=== PATIENT | female | born 1970 | race Caucasian/White ===

== ENCOUNTER 2019-01-29 11:10 | Emergency (ER) | payer OTHER ==
[2019-01-29 11:24] VITALS: BP 163/95; PULSE 71; TEMP 98.3; BMI 30.9
--- NOTE | 2019-01-29 11:58 | PDOC ---
History of Present Illness - General Chief Complaint: Pain, Acute Stated Complaint: right knee pain Time Seen by Provider: 01/29/19 11:31 - History of Present Illness Initial Comments: 01/29/19 15:18 Chief complaint: pain in the right knee History of present illness: Patient is a special-needs teacher,was on the floor playing with student, when arising felt sudden in the right knee, laterally, which has persisted and is limiting ambulation. ROS: No distal numbness, paresthias, pain or weakness. No other injuries PMH: Neg SH/FH neg PE:R knee without deformity, LROM, swelling, effusion. Earnestine neg. MCL nl. LCL + stress tenderness no laxity. Imp; LCLSprain Plan: xray neg, Ayaan, Crutches PWB. Ibuprofen, ice rest, ortho f/u. 01/29/19 16:54 Past History - Past Medical History Allergies/Adverse Reactions: Allergies Allergy/AdvReac Type Severity Reaction Status Date / Time Sulfa (Sulfonamide Allergy Intermediate Hives Verified 01/29/19 11:11 Antibiotics) nitrofurantoin Allergy Verified 01/29/19 11:11 [From Macrobid] nitrofurantoin Allergy Verified 01/29/19 11:11 macrocrystalline [From Macrobid] acetaminophen [From Percocet] AdvReac Verified 01/29/19 11:11 amoxicillin trihydrate AdvReac Verified 01/29/19 11:11 [From Amoxil] oxycodone HCl [From Percocet] AdvReac Verified 01/29/19 11:11 Penicillins AdvReac Verified 01/29/19 11:11 potassium clavulanate AdvReac Verified 01/29/19 11:11 [From Augmentin] lobster Allergy Uncoded 11/06/16 16:55 sri Allergy Uncoded 11/06/16 16:56 Home Medications: Ambulatory Orders Cholecalciferol (Vitamin D3) [Vitamin D3] 1 cap PO DAILY 11/20/16 Cranberry 600 mg PO DAILY 11/20/16 Northera 400 mg PO TID 01/29/17 Folic Acid 1 mg PO DAILY 01/29/19 Vit B Comp/C/Folic/Iron/Vit E [Vitamin B Complex Tablet] 1 each PO DAILY COPD: No HTN: Yes (Orthostatic neurogenic) - Suicide/Smoking/Psychosocial Hx Smoking History: Never smoked Hx Alcohol Use: No Drug/Substance Use Hx: No *Physical Exam - Vital Signs Last Vital Signs Temp Pulse Resp BP Pulse Ox 98.3 F 71 18 163/95 100 01/29/19 11:11 01/29/19 11:11 01/29/19 11:11 01/29/19 11:11 01/29/19 11:11 *DC/Admit/Observation/Transfer Diagnosis at time of Disposition: Knee LCL sprain Qualifiers: Encounter type: initial encounter Laterality: right Qualified Code(s): S83.421A - Sprain of lateral collateral ligament of right knee, initial encounter - Discharge Dispostion Disposition: HOME Condition at time of disposition: Improved Decision to Admit order: No - Referrals Referrals: Oscar Leyva MD [Staff Physician] - 1 week - Patient Instructions Printed Discharge Instructions: How to Use Crutches, How to Use an Elastic Bandage-Knee Sprain, DI for Knee Sprain Additional Instructions: Rest, ice, ibuprofen or naproxen 2-3 times daily as directed. Ayaan wrap Crutches as needed See orthopedist for further evaluation and treatment one week if no improvement. - Post Discharge Activity Forms/Work/School Notes: Back to Work
== END 2019-01-29 13:22 | disposition home or self-care (01) ==
LOC: FER 11:10
DX: S83.421A Sprain of lateral collateral ligament of right knee, initial encounter (principal); X58.XXXA Exposure to other specified factors, initial encounter; Y93.89 Activity, other specified; Y92.219 Unspecified school as the place of occurrence of the external cause; Y99.0 Civilian activity done for income or pay
CPT/HCPCS: 73560-TC-RT-FY; 99282-25